=== PATIENT | female | born 1955 | race Hispanic/Latino ===

== ENCOUNTER 2017-03-26 15:46 | Emergency (ER) | payer OTHER ==
[2017-03-26 15:55] VITALS: TEMP 98.4
[2017-03-26] MEDS ORDERED: Lidocaine 1% (10 ml) Inj INFIL STA (16:16)
[2017-03-26] MEDS ORDERED: Lidocaine 2% Inj (20ml) ONE (16:33)
[2017-03-26 16:54] VITALS: BP 107/65; PULSE 72; RESP 14; O2SAT 96
--- NOTE | 2017-03-26 17:00 | C.PDOC ---
History Of Present Illness 61 yr old female presents to the ER s/p tripping and falling. Patient states she was drinking prior to falling. Reports of a laceration to the lower lip and left forearm. Denies LOC, vision changes, head injury, nausea, vomiting, weakness or numbness. Time Seen by Provider: 03/26/17 16:09 Chief Complaint (Nursing): Abnormal Skin Integrity History Per: Patient History/Exam Limitations: no limitations Onset/Duration Of Symptoms: Sudden Onset (RISK LEAD) Current Symptoms Are (Timing): Still Present Past Medical History Reviewed: Historical Data, Nursing Documentation, Vital Signs Vital Signs: Last Vital Signs Temp 98.4 F 03/26/17 15:55 Pulse 72 03/26/17 16:52 Resp 14 03/26/17 16:52 BP 107/65 03/26/17 16:52 Pulse Ox 96 03/26/17 17:25 - Medical History PMH: Anxiety, HTN Surgical History: Cholecystectomy Family History: States: No Known Family Hx - Social History Hx Alcohol Use: Yes Hx Substance Use: No - Immunization History Hx Tetanus Toxoid Vaccination: No Hx Influenza Vaccination: No Hx Pneumococcal Vaccination: No Review Of Systems Except As Marked, All Systems Reviewed And Found Negative. Eyes: Negative for: Vision Change Gastrointestinal: Negative for: Nausea, Vomiting Skin: Positive for: Other ((+) Laceration to the lower lip and left forearm) Neurological: Negative for: Weakness, Numbness Psych: Positive for: Anxiety Physical Exam - Physical Exam Appears: Non-toxic, No Acute Distress Skin: Warm, Dry Head: Atraumatic, Normacephalic Eye(s): bilateral: Normal Inspection, PERRL, EOMI Ear(s): Left: Normal Nose: Normal Oral Mucosa: Moist Tongue: Normal Appearing, No Swelling Lips: Laceration (1cm to the lower lip) Teeth: Normal Dentition Gingiva: Normal Appearing Throat: Normal, No Erythema, No Exudate Neck: Normal ROM Chest: Symmetrical, No Tenderness Cardiovascular: Rhythm Regular, No Murmur Respiratory: Normal Breath Sounds, No Rales, No Rhonchi, No Wheezing Extremity: Normal ROM, Capillary Refill (<2), Other ((+) Left forearm - 6cm jagged laceration) Pulses: Left Radial: Normal, Right Radial: Normal Neurological/Psych: Oriented x3, Normal Speech, Normal Motor Gait: Steady ED Course And Treatment O2 Sat by Pulse Oximetry: 96 Progress Note: Patient refused CT head. reports she only had 2 beers at her friends house. reports history of extreme anxiety. On re-evaluation ambulating with steady gait Reassessment Condition: Improved Laceration - Laceration Repair Lower Lip Wound Length (In cm): 1 Description Of Wound: Linear Wound Cleansed With: Betadine Anesthesia: Lidocaine 1% Wound Closure: Suture (2) Suture Technique And Material Used: Vicryl (5-0) Wound Complexity: Simple Left Forearm Wound Length (In cm): 6 Description Of Wound: Irregular (Jagged ) Wound Cleansed With: Betadine Anesthesia: Lidocaine 1% Wound Examination: Irrigated With Saline, No FB With Wound Exploration Wound Closure: Suture (12-15) Suture Technique And Material Used: Nylon (5-0) Medical Decision Making Medical Decision Making: PLAN: * Tetanus IM Disposition Counseled Patient/Family Regarding: Studies Performed, Need For Followup - Disposition Referrals: [facility] [Outside] [facility] [Outside] Disposition: HOME/ ROUTINE Disposition Time: 17:30 Condition: STABLE Additional Instructions: Return to ED in 7 days for suture removal Instructions: Laceration (ED), Abrasion (ED), Facial Laceration (ED) - POA Present On Arrival: None - Clinical Impression Clinical Impression: Laceration of lip, Arm laceration - PA / STOCKBROKER / Resident Statement MD/DO has reviewed & agrees with the documentation as recorded. - Scribe Statement The provider has reviewed the documentation as recorded by the Scribe Bess Burns All medical record entries made by the Neliibe were at my direction and personally dictated by me. I have reviewed the chart and agree that the record accurately reflects my personal performance of the history, physical exam, medical decision making, and the department course for this patient. I have also personally directed, reviewed, and agree with the discharge instructions and disposition.
== END 2017-03-26 17:35 | disposition home or self-care (01) ==
LOC: C.ER 15:46
DX: S01.511A Laceration without foreign body of lip, initial encounter (principal); S51.812A Laceration without foreign body of left forearm, initial encounter; W01.0XXA Fall on same level from slipping, tripping and stumbling without subsequent striking against object, initial encounter; Y92.9 Unspecified place or not applicable

== ENCOUNTER 2017-04-02 13:21 | Emergency (ER) | payer OTHER ==
[2017-04-02 13:32] VITALS: RESP 18
[2017-04-02] MEDS ORDERED: Bacitracin 500 Units/gm Oint Foilpak UD ONE (14:14)
--- NOTE | 2017-04-02 14:22 | C.PDOC ---
History Of Present Illness A 61 y/o female comes in for suture removal after having sutures placed on the right forearm and lower lip a week prior. Pt states that laceration in the lower lip has healed well, but adds that there is redness to the wound of the R forearm, but denies purulent discharge, fever, chills, nausea, vomiting, numbness, or any other complaints. Time Seen by Provider: 04/02/17 13:51 Chief Complaint (Nursing): Suture/Staple Removal History Per: Patient History/Exam Limitations: no limitations Onset/Duration Of Symptoms: Days Ago (7) Current Symptoms Are (Timing): Still Present Location Of Injury: Right: Forearm Severity: Mild Recent travel outside of the [place]: No Additional History Per: Patient Past Medical History Reviewed: Historical Data, Nursing Documentation, Vital Signs Vital Signs: Last Vital Signs Temp 97.8 F 04/02/17 14:35 Pulse 64 04/02/17 14:35 Resp 18 04/02/17 14:35 BP 116/69 04/02/17 14:35 Pulse Ox 99 04/02/17 16:22 - Medical History PMH: Anxiety, HTN Surgical History: Cholecystectomy Family History: States: Unknown Family Hx - Social History Hx Alcohol Use: Yes Hx Substance Use: No - Immunization History Hx Tetanus Toxoid Vaccination: No Hx Influenza Vaccination: No Hx Pneumococcal Vaccination: No Review Of Systems Except As Marked, All Systems Reviewed And Found Negative. Constitutional: Negative for: Fever, Chills ENT: Positive for: Other (Sutures lower lip) Gastrointestinal: Negative for: Nausea, Vomiting Musculoskeletal: Positive for: Arm Pain (Sutures right forearm) Skin: Negative for: Other (Purulent discharge) Physical Exam - Physical Exam Appears: Non-toxic, No Acute Distress Skin: Warm, Dry Head: Atraumatic, Normacephalic Lips: No Swelling, No Erythema, Other (Fully healed sutured wound to the lower lip, with 1 suture noted on exam) Extremity: Normal ROM, No Tenderness, Capillary Refill (<2secs), No Swelling, Other (Healing sutured wound to the volar aspect of the right arm with mild surrounding erythema, no discharge.) Extremity: Bilateral: Normal Color And Temperature Pulses: Left Radial: Normal, Right Radial: Normal Neurological/Psych: Oriented x3, Normal Speech, Normal Cognition, Normal Motor, Normal Sensation, Other (No focal deficit) ED Course And Treatment O2 Sat by Pulse Oximetry: 99 (RA) Pulse Ox Interpretation: Normal Medical Decision Making Medical Decision Makin yo F presents for wound check to the R forearm and lower lip. Plans: -Suture removal -Keflex -Reassess Sutures removed easily by PA and clean dressing was applied. Considering signs of possible infection to the sutured wound of the R forearm, pt placed on Keflex and instructed pt to follow up with clinic for wound check and reevaluation. Pt is currently afebrile and is in no acute distress at this time. Disposition - Disposition Referrals: [facility] [Outside] Disposition: HOME/ ROUTINE Disposition Time: 14:20 Condition: STABLE Prescriptions: Cephalexin [Keflex] 500 mg PO Q6 #28 capsule Instructions: Acute Wound Care (ED) Print Language: UZBEK - Clinical Impression Clinical Impression: Visit for wound check, Removal of suture - PA / ONION TIER / Resident Statement MD/DO has reviewed & agrees with the documentation as recorded. - Scribe Statement The provider has reviewed the documentation as recorded by the Scribe David de leon All medical record entries made by the Scribguerline were at my direction and personally dictated by me. I have reviewed the chart and agree that the record accurately reflects my personal performance of the history, physical exam, medical decision making, and the department course for this patient. I have also personally directed, reviewed, and agree with the discharge instructions and disposition.
[2017-04-02 14:36] VITALS: BP 116/69; PULSE 64; TEMP 97.8
[2017-04-02 16:11] VITALS: O2SAT 99
== END 2017-04-02 14:38 | disposition home or self-care (01) ==
LOC: C.ER 13:21
DX: Z48.02 Encounter for removal of sutures (principal)